=== PATIENT | female | born 1950 | race African-American/Black ===

== ENCOUNTER 2019-10-27 16:12 | Emergency (ER) | payer OTHER ==
[~2019-10-27] VITALS: Ht 162.6 cm; Wt 50.8 kg
--- NOTE | 2019-10-27 16:30 | NUR ---
ED Nurse Note: RT at bedside
--- NOTE | 2019-10-27 16:35 | Emergency Room Report ---
History of Present Illness General Chief Complaint: Generalized Weakness Present Illness HPI Patient is a 69-year-old female presents after increased left-sided leg pain. 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 She states she noticed increased discoloration to the foot as well as increased swelling for the past 4 days. She stated this had become dark and more painful since then. She reports being a smoker. Prior history of von Recklinghausen's disease. She reports having increased productive cough. Denies any fever. States she took Tylenol 4 without any improvement Allergies: Coded Allergies: No Known Allergies (Unverified , 10/27/19) Patient History Past Medical History: see triage record Reviewed Nursing Documentation: PMH: Agreed; PSxH: Agreed Review of Systems All Other Systems: negative except mentioned in HPI Physical Exam Sp02 EP Interpretation: reviewed, normal General Appearance: normal inspection, alert, cachetic, Chronically Ill Head: atraumatic ENT: normal ENT inspection, hearing grossly normal, normal voice Neck: normal inspection, full range of motion, supple, no bony tend Respiratory: normal inspection, no respiratory distress, no retraction, wheezing Cardiovascular #1: regular rate, rhythm, no edema Gastrointestinal: normal inspection, normal bowel sounds, non tender, soft, no guarding, no hernia Genitourinary: no CVA tenderness Musculoskeletal: back normal, swelling - Left foot swelling and discoloration, atrophy Neurologic: alert, responsive, speech normal Psychiatric: normal inspection, judgement/insight normal, mood/affect normal Skin: other - Dark discoloration to the toes of the left foot Medical Decision Making Diagnostic Impression: Primary Impression: Severe arterial insufficiency of left lower extremity Additional Impressions: Neurofibromatosis Benign neoplasm of lung ER Course Patient presented for left lower extremity pain. Differential diagnosis include was not limited to fracture, vascular insufficiency, gangrene among others. Because of complexity of patient's case laboratory tests and imaging studies were ordered. Patient's left lower extremity appears to have significant discoloration with dark changes. Patient's time course of pain is consistent with a prolonged time to presentation. Imaging studies were ordered to evaluate patient's foot vascular status. Venous duplex ultrasound showed diminished vascular flow to the entire left lower extremity. She was given IV pain medications.Patient was given aspirin as well as IV heparin. She was given IV Zosyn due to some infiltrate on chest x-ray. Dr. Gallardo vascular surgery at [facility] was contacted for higher level of care and agreed to accept the patient as a transfer.At the time of initial visit to [facility] patient was noted to have dark appearance foot with some discoloration to her toes. Patient was transferred via [facility] ambulance. Labs Test 10/27/19 17:00 White Blood Count 7.9 K/UL (4.8-10.8) Red Blood Count 5.45 M/UL (4.20-5.40) Hemoglobin 15.8 G/DL (12.0-16.0) Hematocrit 48.0 % (37.0-47.0) Mean Corpuscular Volume 88 FL (80-99) Mean Corpuscular Hemoglobin 29.0 PG (27.0-31.0) Mean Corpuscular Hemoglobin Concent 32.9 G/DL (32.0-36.0) Red Cell Distribution Width 14.9 % (11.6-14.8) Platelet Count 208 K/UL (150-450) Mean Platelet Volume 6.3 FL (6.5-10.1) Neutrophils (%) (Auto) 63.6 % (45.0-75.0) Lymphocytes (%) (Auto) 20.2 % (20.0-45.0) Monocytes (%) (Auto) 14.2 % (1.0-10.0) Eosinophils (%) (Auto) 0.9 % (0.0-3.0) Basophils (%) (Auto) 1.1 % (0.0-2.0) Prothrombin Time 10.5 SEC (9.30-11.50) Prothromb Time International Ratio 1.0 (0.9-1.1) Activated Partial Thromboplast Time 29 SEC (23-33) Sodium Level 138 MMOL/L (136-145) Potassium Level 3.4 MMOL/L (3.5-5.1) Chloride Level 102 MMOL/L (98-107) Carbon Dioxide Level 30 MMOL/L (21-32) Anion Gap 6 mmol/L (5-15) Blood Urea Nitrogen 10 mg/dL (7-18) Creatinine 0.6 MG/DL (0.55-1.30) Estimat Glomerular Filtration Rate > 60 mL/min (>60) Glucose Level 93 MG/DL (74-106) Calcium Level 9.8 MG/DL (8.5-10.1) Total Bilirubin 0.6 MG/DL (0.2-1.0) Aspartate Amino Transf (AST/SGOT) 10 U/L (15-37) Alanine Aminotransferase (ALT/SGPT) 17 U/L (12-78) Alkaline Phosphatase 100 U/L (46-116) Troponin I 0.000 ng/mL (0.000-0.056) Total Protein 7.4 G/DL (6.4-8.2) Albumin 3.3 G/DL (3.4-5.0) Globulin 4.1 g/dL Albumin/Globulin Ratio 0.8 (1.0-2.7) EKG Diagnostic Results Rate: normal Rhythm: NSR ST Segments: no acute changes Status: unchanged Disposition: XFER [facility] Condition: Stable Femi Valentin MD Oct 27, 2019 16:35
--- NOTE | 2019-10-27 16:35 | NUR ---
ED Nurse Note: Pt brought into ED by ambulance from home. Pt reported leg pain in left leg for 4 days, sudden onset. Pt denies injury to area. Pt reports being unable to walk on affected leg with pain 8/10.
[2019-10-27 16:40] VITALS: BP 165/91
[2019-10-27] MEDS ORDERED: Morphine Sulfate 4mg/ml Inj (IV USE ONLY) IVP ONE (16:45)
[2019-10-27] MEDS ORDERED: Albuterol/Ipratropium 3ml neb HHN ONE (16:45)
--- NOTE | 2019-10-27 17:00 | NUR ---
ED Nurse Note: ERMD at bedside
--- NOTE | 2019-10-27 17:15 | NUR ---
ED Nurse Note: Ultrasound at bedside
--- NOTE | 2019-10-27 17:17 | Diagnostic Imaging Report ---
EXAM: XR Chest, 1 View CLINICAL HISTORY: SOB TECHNIQUE: Frontal view of the chest. COMPARISON: 06/22/2005. FINDINGS: Lungs: Persistent medial right upper chest density approximately 10 cm which may have slightly increased in size. This may be pleural, right paratracheal, pulmonary lesion/consolidation, or other etiology. Possible mild bilateral pulmonary edema/infiltrates. Pleural space: Unremarkable. No pneumothorax. Heart: Unremarkable. No cardiomegaly. Mediastinum: Stable. Bones/joints: Unremarkable. IMPRESSION: 1. Persistent medial right upper chest density approximately 10 cm which may have slightly increased in size. This may be pleural, right paratracheal, pulmonary lesion/consolidation/collection, or other etiology. 2. Possible mild bilateral pulmonary edema/infiltrates.
[2019-10-27 17:20] LABS: BASOPHILS % (AUTO) 1.1 % (0.0-2.0); EOSINOPHILS % (AUTO) 0.9 % (0.0-3.0); HEMOGLOBIN 15.8 G/DL (12.0-16.0); LYMPHOCYTES % (AUTO) 20.2 % (20.0-45.0); MEAN CORPUSCULAR VOLUME 88 FL (80-99); MONOCYTES % (AUTO) 14.2 % (1.0-10.0); NEUTROPHILS % (AUTO) 63.6 % (45.0-75.0); PLATELET COUNT 208 K/UL (150-450); RED BLOOD COUNT 5.45 M/UL (4.20-5.40); RED CELL DISTRIBUTION WIDTH 14.9 % (11.6-14.8); WHITE BLOOD COUNT 7.9 K/UL (4.8-10.8)
[2019-10-27 17:35] LABS: ANION GAP 6 mmol/L (5-15); BLOOD UREA NITROGEN 10 mg/dL (7-18); CALCIUM 9.8 MG/DL (8.5-10.1); CARBON DIOXIDE 30 MMOL/L (21-32); CHLORIDE 102 MMOL/L (98-107); CREATININE 0.6 MG/DL (0.55-1.30); POTASSIUM 3.4 MMOL/L (3.5-5.1); SODIUM 138 MMOL/L (136-145)
[2019-10-27 17:40] VITALS: BP 137/102
[2019-10-27 17:40] LABS: ALANINE AMINOTRANSFERASE 17 U/L (12-78); ALBUMIN 3.3 G/DL (3.4-5.0); ALBUMIN/GLOBULIN RATIO 0.8 (1.0-2.7); ALKALINE PHOSPHATASE 100 U/L (46-116); ASPARTATE AMINO TRANSFERASE 10 U/L (15-37); BILIRUBIN,TOTAL 0.6 MG/DL (0.2-1.0)
[2019-10-27] MEDS ORDERED: Piperacillin/Tazobactam 3.375 GM in NS 110 ML IVPB ONE (17:45)
--- NOTE | 2019-10-27 18:00 | NUR ---
ED Nurse Note: ERMD at bedside
[2019-10-27 18:29] VITALS: BP 131/115
[2019-10-27] MEDS ORDERED: Enoxaparin 60mg Inj SUBQ ONE (18:30)
[2019-10-27] MEDS ORDERED: Heparin 25,000u/D5W 500ml 500 ML IV SCH (18:30)
[2019-10-27] MEDS ORDERED: Heparin 5000 units/ml inj IV ONE (18:30)
[2019-10-27] MEDS ORDERED: Aspirin Baby 81mg ORAL ONE (18:30)
--- NOTE | 2019-10-27 18:48 | Diagnostic Imaging Report ---
EXAM: US Duplex Left Lower Extremity Veins CLINICAL HISTORY: PAIN TECHNIQUE: Real-time duplex ultrasound scan of the left lower extremity veins integrating B-mode two-dimensional vascular structure, Doppler spectral analysis, color flow Doppler imaging and compression. COMPARISON: No relevant prior studies available. FINDINGS: Deep veins: Unremarkable. No DVT in the visualized common femoral, femoral, proximal deep femoral or popliteal veins. The veins demonstrate normal color flow, are normally compressible, with normal phasic flow and/or augmentation response. Superficial veins: Unremarkable. No thrombus in the visualized great saphenous vein. Soft tissues: No acute findings. IMPRESSION: No DVT.
--- NOTE | 2019-10-27 19:05 | Diagnostic Imaging Report ---
EXAM: US Duplex Left Lower Extremity Arteries CLINICAL HISTORY: PAIN TECHNIQUE: Real-time duplex ultrasound scan of the left lower extremity arteries integrating B-mode two-dimensional vascular structure, Doppler spectral analysis and color flow Doppler imaging. COMPARISON: No relevant prior studies available. FINDINGS/IMPRESSION: Occlusion of SAND OPERATOR, SFA, DFA. Diminutive trickle monophasic flow in popliteal artery and [employer]'S MATE. Occlusion of DPA.
--- NOTE | 2019-10-27 19:15 | NUR ---
HAND-OFF: Report given to Bhavik Aldridge Rn.
[2019-10-27 19:17] VITALS: BP 129/79
--- NOTE | 2019-10-27 19:19 | NUR ---
ED Nurse Note: received patient from shaun dalton. patient resting comfortably in bed. ao4 nad vss. iv intact and patent; fluids running as prescribed. discussed plan of care with pt; aware of pending transfer.
[2019-10-27 20:00] VITALS: BP 129/79
--- NOTE | 2019-10-27 20:00 | NUR ---
ED Nurse Note: report given to pradeep dalton of [facility] and [facility]. patient to be transferred to [facility]. patient in stable condition. iv intact and patent; fluids runnings prescribed. patient left via gurney with all belongings.
== END 2019-10-27 20:00 | disposition short-term general hospital (02) ==
LOC: EDBD 16:12 → EMR 17:00
DX: I77.1 Stricture of artery (principal); Q85.00 Neurofibromatosis, unspecified; D14.30 Benign neoplasm of unspecified bronchus and lung; F17.200 Nicotine dependence, unspecified, uncomplicated
CPT/HCPCS: 36415; 71045; 80053; 84484; 85025; 85610; 85730; 86850; 86900; 86901; 93005; 93926; 93971; 94640; 94664; 96365; 96367; 96375; 99285; J1644; J2270; J2405; J2543; J7620